=== PATIENT | male | born 1995 | race Caucasian/White ===

== ENCOUNTER 2017-02-02 05:01 | Emergency (ER) | payer BC ==
[~2017-02-02] VITALS: Ht 175.3 cm; Wt 117.9 kg
[2017-02-02] MEDS ORDERED: NS IV 1000 ML 1,000 ML IV ONE (05:22)
[2017-02-02] MEDS ORDERED: KETOROLAC 30 MG/ML VIAL IVP ONE (05:30)
[2017-02-02] MEDS ORDERED: ONDANSETRON 4 MG/2 ML (SDV) Z0FRAN IVP ONE (05:30)
[2017-02-02 05:39] LABS: BILIRUBIN,URINE NEGATIVE (NEGATIVE); KETONES,URINE 1+ (NEGATIVE); LEUKOCYTE ESTERASE ,URINE 1+ (NEGATIVE); NITRITE,URINE NEGATIVE (NEGATIVE); PH,URINE 5 (5-9); PROTEIN,URINE 3+ (NEGATIVE); UROBILINOGEN,URINE 1 MG/DL (NORMAL)
[2017-02-02 05:52] LABS: SQUAMOUS EPITHELIAL CELL,UR 0-2 /HPF; WBC,URINE 0-2 /HPF
[2017-02-02 05:53] LABS: BASOPHILS % (AUTO) 0 % (0-10); EOSINOPHILS # (AUTO) 0.1 10^3/uL (0.0-0.3); EOSINOPHILS % (AUTO) 1 % (0-10); LYMPHOCYTES # (AUTO) 1.3 X 10^3 (1.0-4.0); LYMPHOCYTES % (AUTO) 12 % (12-44); MEAN CORPUSCULAR HEMOGLOBIN 28 PG (25-34); MEAN CORPUSCULAR HGB CONC 35 G/DL (32-36); MEAN CORPUSCULAR VOLUME 80 FL (80-99); MEAN PLATELET VOLUME 9.7 FL (7.4-10.4); MONOCYTES # (AUTO) 0.6 X 10^3 (0.0-1.0); MONOCYTES % (AUTO) 5 % (0-12); NEUTROPHILS # (AUTO) 9.1 X 10^3 (1.8-7.8); NEUTROPHILS % (AUTO) 82 % (42-75); PLATELET COUNT 216 10^3/uL (130-400); RED BLOOD COUNT 5.35 10^6/uL (4.35-5.85); RED CELL DISTRIBUTION WIDTH 13.2 % (10.0-14.5); WHITE BLOOD COUNT 11.1 10^3/uL (4.3-11.0)
[2017-02-02] MEDS ORDERED: SERT100T8 PO (06:02)
--- NOTE | 2017-02-02 06:10 | ED Abdominal Pain ---
General Chief Complaint: Back Problems Stated Complaint: RT SIDE PAIN Nursing Triage Note: PATIENT STATES THAT HE WOKE UP TONIGHT WITH RIGHT FLANK PAIN. HE THEN TRIED TO URINATE AND HAD DIFFICULTY. HE THEN TOOK 50MG TRAMADOL PO. HE THEN VOMITED. Sepsis Screen: No Definite Risk Source of Information: Patient Exam Limitations: No Limitations History of Present Illness Time Seen By Provider: 05:06 Initial Comments This 21-year-old young man presents to the emergency room with sudden onset of right lower back and right flank pain at about 03:20. He has associated nausea. His urine is dark. The pain woke him from sleep. He has no fever. He has no significant health history. Patient reported difficulty urinating this morning. Allergies and Home Medications Allergies Coded Allergies: No Known Drug Allergies (Unverified , 02/02/17) Home Medications Hydrocodone/Acetaminophen 1 Each Tablet, 1-2 EACH PO Q4H PRN for PAIN, #20 Prescribed by: RONNIE COCHRAN on 02/02/17 0640 Ondansetron 4 Mg Tab.rapdis, 4 MG SL Q4H PRN for NAUSEA/VOMITING-1ST LINE, #10 Ref 1 Prescribed by: RONNIE COCHRAN on 02/02/17 0640 Sertraline HCl 100 Mg Tablet, 100 MG PO DAILY, (Reported) Review of Systems Constitutional: no symptoms reported EENTM: No Symptoms Reported Respiratory: No Symptoms Reported Cardiovascular: No Symptoms Reported Gastrointestinal: See HPI Genitourinary: See HPI Musculoskeletal: no symptoms reported Skin: no symptoms reported Psychiatric/Neurological: No Symptoms Reported Endocrine: No Symptoms Reported Hematologic/Lymphatic: No Symptoms Reported Past Dhmoaev-Dssrdy-Zqkacp Hx Patient Social History Recent Foreign Travel: No Contact w/Someone Who Travel: No Recent Infectious Disease Expo: No Surgeries History of Surgeries: No Respiratory History of Respiratory Disorde: No Cardiovascular History of Cardiac Disorders: No Neurological History of Neurological Disord: No Reproductive System Hx Reproductive Disorders: No Genitourinary History of Genitourinary Disor: No Gastrointestinal History of Gastrointestinal Di: No Musculoskeletal History of Musculoskeletal Dis: No Endocrine History of Endocrine Disorders: No HEENT History of HEENT Disorders: No Cancer History of Cancer: No Psychosocial History of Psychiatric Problem: Yes Integumentary History of Skin or Integumenta: No Physical Exam Vital Signs VS - Last 72 Hours, by Label 02/02/17 02/02/17 05:21 06:56 Temp 97.9 98.1 Pulse 74 65 Resp 20 16 B/P (MAP) 150/95 (113) Pulse Ox 97 97 O2 Delivery Room Air Room Air Capillary Refill : Less Than 3 Seconds General Appearance: WD/WN, mild distress HEENT: PERRL/EOMI, normal ENT inspection, pharynx normal Neck: normal inspection Respiratory: lungs clear, normal breath sounds, no respiratory distress, no accessory muscle use Cardiovascular: regular rate, rhythm, no edema, no murmur Gastrointestinal: normal bowel sounds, soft, tenderness (right mid abdomen) Extremities: normal inspection, no pedal edema Back: normal inspection, CVA tenderness (R) Neurologic/Psychiatric: spring fitter II-XII nml as tested, no motor/sensory deficits, alert, normal mood/affect, oriented x 3 Skin: normal color, warm/dry Progress/Results/Core Measures Results/Orders Lab Results Laboratory Tests Test 02/02/17 05:19 02/02/17 05:45 Range/Units Urine Color KRZYSZTOF H Urine Clarity SLIGHTLY CLOUDY Urine pH 5 5-9 Urine Specific [place] 1.030 H 1.016-1.022 Urine Protein 3+ H NEGATIVE Urine Glucose (UA) NEGATIVE NEGATIVE Urine Ketones 1+ H NEGATIVE Urine Nitrite NEGATIVE NEGATIVE Urine Bilirubin NEGATIVE NEGATIVE Urine Urobilinogen 1 NORMAL MG/DL Urine Leukocyte Esterase 1+ H NEGATIVE Urine RBC (Auto) 5+ H NEGATIVE Urine RBC >100 H /HPF Urine WBC 0-2 /HPF Urine Squamous Epithelial Cells 0-2 /HPF Urine Crystals NONE /LPF Urine Bacteria TRACE /HPF Urine Casts NONE /LPF Urine Mucus MODERATE H /LPF Urine Culture Indicated NO White Blood Count 11.1 H 4.3-11.0 10^3/uL Red Blood Count 5.35 4.35-5.85 10^6/uL Hemoglobin 14.9 13.3-17.7 G/DL Hematocrit 43 40-54 % Mean Corpuscular Volume 80 80-99 FL Mean Corpuscular Hemoglobin 28 25-34 PG Mean Corpuscular Hemoglobin Concent 35 32-36 G/DL Red Cell Distribution Width 13.2 10.0-14.5 % Platelet Count 216 130-400 10^3/uL Mean Platelet Volume 9.7 7.4-10.4 FL Neutrophils (%) (Auto) 82 H 42-75 % Lymphocytes (%) (Auto) 12 12-44 % Monocytes (%) (Auto) 5 0-12 % Eosinophils (%) (Auto) 1 0-10 % Basophils (%) (Auto) 0 0-10 % Neutrophils # (Auto) 9.1 H 1.8-7.8 X 10^3 Lymphocytes # (Auto) 1.3 1.0-4.0 X 10^3 Monocytes # (Auto) 0.6 0.0-1.0 X 10^3 Eosinophils # (Auto) 0.1 0.0-0.3 10^3/uL Basophils # (Auto) 0.0 0.0-0.1 10^3/uL Sodium Level 140 135-145 MMOL/L Potassium Level 3.4 L 3.6-5.0 MMOL/L Chloride Level 103 98-107 MMOL/L Carbon Dioxide Level 25 21-32 MMOL/L Anion Gap 12 5-14 MMOL/L Blood Urea Nitrogen 12 7-18 MG/DL Creatinine 0.88 0.60-1.30 MG/DL Estimat Glomerular Filtration Rate > 60 BUN/Creatinine Ratio 14 Glucose Level 113 H 70-105 MG/DL Calcium Level 9.5 8.5-10.1 MG/DL Total Bilirubin 0.6 0.1-1.0 MG/DL Aspartate Amino Transf (AST/SGOT) 17 5-34 U/L Alanine Aminotransferase (ALT/SGPT) 20 0-55 U/L Alkaline Phosphatase 80 40-136 U/L Total Protein 7.6 6.4-8.2 GM/DL Albumin 4.5 3.2-4.5 GM/DL My Orders Orders - RONNIE DOTY MD Ua Culture If Indicated (02/02/17 05:06) Cbc With Automated Diff (02/02/17 05:22) Comprehensive Metabolic Panel (02/02/17 05:22) Saline Lock/Iv-Start (02/02/17 05:22) Ns Iv 1000 Ml (Sodium Chloride 0.9%) (02/02/17 05:22) Ketorolac Injection (Toradol Injection) (02/02/17 05:30) Ondansetron Injection (Zofran Injectio (02/02/17 05:30) Ct Abd/Pelvis Wo(Kidney Stone) (02/02/17 06:01) Abdomen/Kub 1view (02/02/17 06:41) Medications Given in ED Vital Signs/I&O Vital Sign - Last 12Hours 02/02/17 02/02/17 05:21 06:56 Temp 97.9 98.1 Pulse 74 65 Resp 20 16 B/P (MAP) 150/95 (113) Pulse Ox 97 97 O2 Delivery Room Air Room Air Blood Pressure Mean: 113 Progress Note : Time: 06:05 Progress Note There was a significant amount of blood in his urine. CT for stone search has been ordered. Patient received Toradol and Zofran for management of his symptoms which was quite helpful. IV fluids are infusing. Diagnostic Imaging Diagonstic Imaging: CT Plain Films/CT/US/NM/MRI: abdomen, pelvis Comments CT abdomen and pelvis viewed by me and report reviewed. See report below: NAME: NAYELI FERGUSON [facility] REC#: [id number] PT STATUS: REG ER : 1995 PHYSICIAN: RONNIE DOTY MD ADMIT DATE: 02/02/17/ER Draft Date of Exam:02/02/17 CT ABD/PELVIS WO(KIDNEY STONE) PROCEDURE: CT urinary tract, rule out kidney stone. TECHNIQUE: Multiple contiguous axial images were obtained through the abdomen and pelvis without the use of intravenous contrast. INDICATION: Right flank pain. COMPARISON: None. FINDINGS: Lung bases are clear. The liver, gallbladder, pancreas, spleen, adrenals, left kidney and left collecting system are negative. There is a 2 mm renal stone in the right proximal ureter, at the level of the aortic bifurcation which results in mild right ureteropyelocaliectasis. The unopacified bladder is negative. Normal appendix. No free intraperitoneal air or fluid. No lymphadenopathy. No evidence of bowel obstruction. Osseous structures are negative. IMPRESSION: 2 mm renal stone in the proximal right ureter resulting in mild right hydronephrosis. Dictated on workstation # [id number] Dict: 02/02/17624 Trans: 02/02/17630 [id number] Interpreted by: YOINS BARAJAS MD Departure Impression Impression: Primary Impression: Right ureteral stone Additional Impressions: Hydronephrosis Qualified Codes: N13.2 - Hydronephrosis with renal and ureteral calculous obstruction Nausea and vomiting Qualified Codes: R11.2 - Nausea with vomiting, unspecified Disposition: 01 HOME, SELF-CARE Condition: Improved Departure-Patient Inst. Decision time for Depature: 06:37 Referrals: ISAURA ACUÑA MD (PCP) Primary Care Physician GAUDENCIO WIGGINS MD Patient Instructions: Kidney Stones in Adults Add. Discharge Instructions: Drink plenty of clear liquids. Strain your urine and bring any stones collected with you to your follow-up appointment. Follow-up with your primary care provider or a urologist as soon as possible. Use your pain medication and nausea medication as prescribed. Return to care if symptoms worsen. All discharge instructions reviewed with patient and/or family. Voiced understanding. Scripts Ondansetron (Zofran Odt) 4 Mg Tab.rapdis 4 MG SL Q4H Y for NAUSEA/VOMITING-1ST LINE, #10 TAB 1 Refill Prov: RONNIE DOTY MD 02/02/17 Hydrocodone/Acetaminophen (Hydrocodon -Acetaminophen 5-325) 1 Each Tablet 1-2 EACH PO Q4H Y for PAIN, #20 TAB Prov: RONNIE DOTY MD 02/02/17 Work/School Note: Work Release Form Date Seen in the Emergency Department: Feb 02, 2017 Return to Work: Feb 02, 2017 Other Restrictions Listed Below: Light duty with no driving or operation of machinery while on pain meds RONNIE DOTY MD Feb 02, 2017 06:09
[2017-02-02 06:12] LABS: ALANINE AMINOTRANSFERASE 20 U/L (0-55); ALBUMIN 4.5 GM/DL (3.2-4.5); ANION GAP 12 MMOL/L (5-14); ASPARTATE AMINO TRANSFERASE 17 U/L (5-34); BILIRUBIN,TOTAL 0.6 MG/DL (0.1-1.0); BLOOD UREA NITROGEN 12 MG/DL (7-18); BUN/CREATININE RATIO 14; CALCIUM 9.5 MG/DL (8.5-10.1); CARBON DIOXIDE 25 MMOL/L (21-32); CHLORIDE 103 MMOL/L (98-107); CREATININE SERUM 0.88 MG/DL (0.60-1.30); GFR ESTIMATED > 60; GLUCOSE 113 MG/DL (70-105); POTASSIUM 3.4 MMOL/L (3.6-5.0); SODIUM 140 MMOL/L (135-145); TOTAL PROTEIN 7.6 GM/DL (6.4-8.2)
--- NOTE | 2017-02-02 06:32 | Diagnostic Imaging Report ---
PROCEDURE: CT urinary tract, rule out kidney stone. TECHNIQUE: Multiple contiguous axial images were obtained through the abdomen and pelvis without the use of intravenous contrast. INDICATION: Right flank pain. COMPARISON: None. FINDINGS: Lung bases are clear. The liver, gallbladder, pancreas, spleen, adrenals, left kidney and left collecting system are negative. There is a 2 mm renal stone in the right proximal ureter, at the level of the aortic bifurcation which results in mild right ureteropyelocaliectasis. The unopacified bladder is negative. Normal appendix. No free intraperitoneal air or fluid. No lymphadenopathy. No evidence of bowel obstruction. Osseous structures are negative. IMPRESSION: 2 mm renal stone in the proximal right ureter resulting in mild right hydronephrosis. Dictated by: Dictated on workstation # [id number]
[2017-02-02] MEDS ORDERED: HYDR-3812 PO (06:40)
[2017-02-02] MEDS ORDERED: ONDA4TAB8 SL (06:40)
[2017-02-02 06:56] VITALS: BP 134/72
--- NOTE | 2017-02-02 07:04 | Diagnostic Imaging Report ---
EXAM: ABDOMEN/KUB 1VIEW INDICATION: Right flank pain. COMPARISON: CT abdomen and pelvis also performed today. FINDINGS: The known 2 mm obstructing renal stone in the proximal right ureter is not well seen. Nonspecific bowel gas pattern. No acute osseous findings. IMPRESSION: No acute radiographic findings in the abdomen. The known proximal right ureteral stone is not well seen. Dictated by: Dictated on workstation # [id number]
== END 2017-02-02 06:56 | disposition home or self-care (01) ==
LOC: EDUNIT# 05:01 → ER 05:04
DX: N13.2 Hydronephrosis with renal and ureteral calculous obstruction (principal)
CPT/HCPCS: 36415; 74000; 74176; 80053; 81000; 85025